=== PATIENT | male | born 1995 | race Caucasian/White ===

== ENCOUNTER 2017-03-27 17:28 | Emergency (ER) | payer SELFPAY ==
[~2017-03-27 17:28] MED LIST: ABILIFY30 MG PO; ABILIFY5 MG PO; ADDERALL 20 MG20 M1 PO; ADDERALL PO; ALBUTEROL SULF8.5 GM PO; ALBUTEROL17 GM INH; ATIVAN0.5 MG PO; ATIVAN1 M2 PO; CALM FORTE PO; CLARITIN10 MG; CONCERTA27 M1 PO; CYPROHEPTADINE H4 MG PO; IMITREX25 MG PO; LAMICTAL100 MG PO; LAMICTAL200 M1 PO; LAMICTAL200 M2 PO; NORCO 5/3251 TAB PO; OMEPRAZOLE20 M2 PO; PREDNISONE20 MG PO; SEROQUEL25 MG; TYLENOL500 MG PO; ZANTAC 2525 MG PO; ZOFRAN ODT4 MG/UDTAB PO; ZOFRAN4 M2 PO; [UNRECOGNIZED DRUG - OTHER] PO
[2017-03-27] MEDS ORDERED: NO HOME MEDICATION XX (17:40)
== END 2017-03-27 20:00 ==
LOC: EDMED 17:28
DX: R51 Headache (principal); Z90.49 Acquired absence of other specified parts of digestive tract
CPT/HCPCS: J1200; J1885; J2405; J7030